=== PATIENT | female | born 1955 | race Two or more races ===

== ENCOUNTER 2022-10-27 10:47 | Emergency (ER) | payer OTHER ==
[~2022-10-27] VITALS: Ht 149.9 cm; Wt 49.0 kg
[2022-10-27] MEDS ORDERED: CIPRO500 MG PO (15:53)
[2022-10-27] MEDS ORDERED: NORFLEX100MG PO (15:56)
[2022-10-27] MEDS ORDERED: KETO10TA2 PO (15:56)
== END 2022-10-27 16:13 | disposition home or self-care (01) ==
LOC: ER 10:47
DX: M54.89 Other dorsalgia (principal); I10 Essential (primary) hypertension

== ENCOUNTER 2023-08-02 09:14 | Outpatient (CLI) | payer OTHER ==
[~2023-08-02 09:14] MED LIST: CIPRO500 MG PO; KETO10TA2 PO; NORFLEX100MG PO
== END 2023-08-02 09:21 | disposition home or self-care (01) ==
LOC: MAMO-SONO 09:14
DX: Z12.31 Encounter for screening mammogram for malignant neoplasm of breast (principal)